=== PATIENT | female | born 1950 | race Caucasian/White ===

== ENCOUNTER 2016-08-02 16:04 | Outpatient (CLI) | payer MEDICARE, OTHER | END 2016-08-02 16:05 | disposition home or self-care (01) | DX: E78.2 Mixed hyperlipidemia (principal); Z85.43 Personal history of malignant neoplasm of ovary; Z79.899 Other long term (current) drug therapy; I10 Essential (primary) hypertension; E55.9 Vitamin D deficiency, unspecified ==

== ENCOUNTER 2018-09-16 05:37 | Outpatient (CLI) | payer MEDICARE, OTHER | END 2018-09-16 05:38 | disposition short-term general hospital (02) | LOC: EMS 05:37 | PROVIDERS: ATTEND Surgery | DX: R00.2 Palpitations (principal) | CPT/HCPCS: A0425; A0427 ==

== ENCOUNTER 2018-10-24 08:00 | Outpatient (CLI) | payer MEDICARE, OTHER ==
[2018-10-24 12:49] LABS: BASOPHILS % (AUTO) 0.6 %; EOSINOPHILS # (AUTO) 0.1 10^3/uL (0.0-0.7); EOSINOPHILS % (AUTO) 2.3 %; HGB - HEMOGLOBIN 13.7 g/dL (12.0-16.0); LYMPHOCYTES # (AUTO) 1.3 10^3/uL (1.5-3.5); LYMPHOCYTES % (AUTO) 25.3 %; MEAN CORPUSCULAR HEMOGLOBIN 27.8 pg (27.0-31.0); MEAN CORPUSCULAR HGB CONC 30.9 g/dL (32.0-36.0); MEAN CORPUSCULAR VOLUME 90.2 fL (81.0-99.0); MEAN PLATELET VOLUME 11.8 fL (7.9-10.8); MONOCYTES # (AUTO) 0.4 10^3/uL (0.0-1.0); MONOCYTES % (AUTO) 7.4 %; NEUTROPHILS # (AUTO) 3.4 10^3/uL (1.5-6.6); PLT - PLATELET COUNT 236 10^3/uL (130-450); RED BLOOD COUNT 4.92 10^6/uL (4.20-5.40); WHITE BLOOD COUNT 5.3 x10^3/uL (4.8-10.8)
[2018-10-24 14:23] LABS: ALBUMIN 4.4 g/dL (3.2-5.5); ALBUMIN/GLOBULIN RATIO 1.4 (1.0-2.2); ALKALINE PHOSPHATASE 57 IU/L (42-121); ALT ALANINE AMINOTRANSFERASE 22 IU/L (10-60); AST ASPARTATE AMINOTRANSFERASE 23 IU/L (10-42); BILIRUBIN,TOTAL 0.7 mg/dL (0.2-1.0); BUN - BLOOD UREA NITROGEN 19 mg/dL (6-20); CALCIUM 9.2 mg/dL (8.5-10.3); CARBON DIOXIDE - CO2 23 mmol/L (21-32); CHLORIDE 107 mmol/L (101-111); CHOL/HDL RATIO 4.7 (<4.4); CHOLESTEROL 210 mg/dL; CREATININE 0.7 mg/dL (0.4-1.0); GFR - MDRD 83 (>89); GLUCOSE 100 mg/dL (70-100); HDL CHOLESTEROL 45 mg/dL; LDL CHOLESTEROL,CALCULATED 145 mg/dL; LDL/HDL RATIO 3.2 (<4.4); SODIUM 138 mmol/L (135-145); TOTAL PROTEIN 7.5 g/dL (6.7-8.2); VLDL CHOLESTEROL 20 mg/dL
== END 2018-10-24 23:59 | disposition home or self-care (01) ==
LOC: LAB.N 08:00
PROVIDERS: ATTEND Family Medicine
DX: Z79.899 Other long term (current) drug therapy (principal); C56.9 Malignant neoplasm of unspecified ovary; I10 Essential (primary) hypertension
CPT/HCPCS: 36415; 80053; 80061; 82378; 83721; 85025

== ENCOUNTER 2018-10-27 07:33 | Outpatient (CLI) | payer MEDICARE, OTHER | END 2018-10-27 07:34 | disposition home or self-care (01) | LOC: DI 07:33 | PROVIDERS: ATTEND Nurse Practitioner | DX: I48.0 Paroxysmal atrial fibrillation (principal); I10 Essential (primary) hypertension | CPT/HCPCS: 93306 ==

== ENCOUNTER 2020-12-15 08:36 | Outpatient (CLI) | payer MEDICARE, OTHER ==
[2020-12-15 09:15] LABS: ALBUMIN 4.1 g/dL (3.2-5.5); ALBUMIN/GLOBULIN RATIO 1.2 (1.0-2.2); BASOPHILS % (AUTO) 0.4 %; BILIRUBIN,TOTAL 0.5 mg/dL (0.2-1.0); CALCIUM 9.3 mg/dL (8.5-10.3); CREATININE 0.8 mg/dL (0.4-1.0); EOSINOPHILS # (AUTO) 0.1 10^3/uL (0.0-0.7); EOSINOPHILS % (AUTO) 2.1 %; HCT - HEMATOCRIT 41.8 % (37.0-47.0); HGB - HEMOGLOBIN 13.5 g/dL (12.0-16.0); LYMPHOCYTES # (AUTO) 1.3 10^3/uL (1.5-3.5); LYMPHOCYTES % (AUTO) 23.6 %; MEAN CORPUSCULAR HGB CONC 32.3 g/dL (32.0-36.0); MEAN CORPUSCULAR VOLUME 89.9 fL (81.0-99.0); MEAN PLATELET VOLUME 10.5 fL (7.9-10.8); MONOCYTES # (AUTO) 0.4 10^3/uL (0.0-1.0); NEUTROPHILS # (AUTO) 3.7 10^3/uL (1.5-6.6); NEUTROPHILS % (AUTO) 66.7 %; PLT - PLATELET COUNT 233 10^3/uL (130-450); POTASSIUM 4.5 mmol/L (3.5-5.0); RED BLOOD COUNT 4.65 10^6/uL (4.20-5.40); RED CELL DISTRIBUTION WIDTH 14.1 % (12.0-15.0); TOTAL PROTEIN 7.4 g/dL (6.7-8.2); WHITE BLOOD COUNT 5.6 x10^3/uL (4.8-10.8)
== END 2020-12-15 08:37 | disposition home or self-care (01) ==
LOC: LAB 08:36
PROVIDERS: ATTEND Internal Medicine
DX: I48.91 Unspecified atrial fibrillation (principal)
CPT/HCPCS: 36415; 80053; 85025

== ENCOUNTER 2021-06-27 13:28 | Outpatient (CLI) | payer MEDICARE, OTHER ==
[2021-06-27 18:54] LABS: CREATININE 0.7 mg/dL (0.4-1.0)
== END 2021-06-27 13:29 | disposition home or self-care (01) ==
LOC: LAB.N 13:28
DX: I48.91 Unspecified atrial fibrillation (principal)
CPT/HCPCS: 36415; 82565

== ENCOUNTER 2022-06-19 23:32 | Emergency (ER) | payer MEDICARE, OTHER ==
[2022-06-19] MEDS ORDERED: ONDANSETRON 4 MG/2 ML VIAL IVP STA (23:58)
[2022-06-19] MEDS ORDERED: SODIUM CHLORIDE 0.9% 1,000 ML IV STA (23:58)
[2022-06-20] MEDS: HYDROmorphone 1 MG/ML CARPUJECT IVP PRN ×2 (00:05→03:08)
[2022-06-20] MEDS ORDERED: iohexoL-300 100 ML VIAL ONE (00:11)
[2022-06-20 00:15] LABS: BASOPHILS % (AUTO) 0.3 %; EOSINOPHILS # (AUTO) 0.1 10^3/uL (0.0-0.7); EOSINOPHILS % (AUTO) 0.6 %; HCT - HEMATOCRIT 46.5 % (37.0-47.0); HGB - HEMOGLOBIN 15.5 g/dL (12.0-16.0); LYMPHOCYTES # (AUTO) 2.2 10^3/uL (1.5-3.5); LYMPHOCYTES % (AUTO) 17.9 %; MEAN CORPUSCULAR HEMOGLOBIN 28.7 pg (27.0-31.0); MEAN CORPUSCULAR HGB CONC 33.3 g/dL (32.0-36.0); MONOCYTES # (AUTO) 0.6 10^3/uL (0.0-1.0); MONOCYTES % (AUTO) 4.7 %; NEUTROPHILS # (AUTO) 9.2 10^3/uL (1.5-6.6); NEUTROPHILS % (AUTO) 76.2 %; PLT - PLATELET COUNT 225 10^3/uL (130-450); RED BLOOD COUNT 5.41 10^6/uL (4.20-5.40); RED CELL DISTRIBUTION WIDTH 13.4 % (12.0-15.0)
[2022-06-20 00:31] LABS: PT - PROTHROMBIN TIME 11.4 secs (9.9-12.6)
[2022-06-20 00:37] LABS: ALBUMIN 4.3 g/dL (3.2-5.5); ALBUMIN/GLOBULIN RATIO 1.2 (1.0-2.2); BILIRUBIN,TOTAL 0.8 mg/dL (0.2-1.0); POTASSIUM 3.4 mmol/L (3.5-5.0)
[2022-06-20] MEDS ORDERED: iohexoL-300 100 ML VIAL IVP ONE (02:27)
[2022-06-20 02:32] LABS: MUDS CUTOFF CONCENTRATIONS CUTOFF CONC BELOW:
[2022-06-20 02:34] LABS: BILIRUBIN,URINE NEGATIVE (NEGATIVE); CLARITY,URINE CLEAR (CLEAR); GLUCOSE, URINE (UA) NEGATIVE (NEGATIVE); KETONES,URINE (UA) 40 mg/dL (NEGATIVE); LEUKOCYTE ESTERASE, URINE NEGATIVE (NEGATIVE); NITRITE,URINE NEGATIVE (NEGATIVE); OCCULT BLOOD,URINE TRACE-INTA (NEGATIVE); PROTEIN,URINE NEGATIVE (NEGATIVE); UROBILINOGEN,URINE 0.2 (NORMAL) E.U./dL (NORMAL)
[2022-06-20 02:43] LABS: AMPHETAMINE SCREEN,URINE NEGATIVE (NEGATIVE); BARBITURATE SCREEN,UR NEGATIVE (NEGATIVE); BENZODIAZEPINES SCREEN, URINE NEGATIVE (NEGATIVE); COCAINE SCREEN URINE NEGATIVE (NEGATIVE); METHADONE SCREEN, URINE NEGATIVE (NEGATIVE); METHAMPHETAMINES SCREEN, URINE NEGATIVE (NEGATIVE); OPIATE SCREEN, URINE POSITIVE (NEGATIVE); OXYCODONE SCREEN, URINE NEGATIVE (NEGATIVE); PROPOXYPHENE SCREEN, URINE NEGATIVE (NEGATIVE); THC CANNABINOID SCREEN, URINE NEGATIVE (NEGATIVE); TRICYCLIC ANTIDEPRESSANT,URINE NEGATIVE (NEGATIVE)
[2022-06-20] MEDS ORDERED: ONDANSETRON ODT 4 MG TABLET TL PRN (04:40)
--- NOTE | 2022-06-20 04:53 | ED Physician Documentation ---
History of Present Illness - Stated complaint Stated Complaint: ABD PX - Chief complaint Chief Complaint: Abd Pain - Additonal information Additional information: Patient 72-year-old female presenting to the emergency department with chief co mplaint abdominal pain and nausea vomiting. Acute onset right-sided abdominal spasm with associated nausea vomiting began today. Accompanied by . Reports has had multiple episodes similar to this in the past. Reports that ordinarily they resolve after a few days but they have never been this intense. Has a past medical significant for ovarian carcinoma status post total hysterectomy as well as cholecystectomy.Takes Eliquis for paroxysmal atrial fibrillation. 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[employer]: Ovarian cancer - Past Surgical History Past Surgical History: Yes General: Cholecystectomy /MANAGER [employer]: Tubal ligation, Hysterectomy, Oophrectomy - Present Medications Home Medications: Ambulatory Orders Medication Instructions Recorded Confirmed Losartan [Cozaar] 50 mg PO DAILY 06/24/15 06/20/22 Apixaban [Eliquis] 5 mg ORAL BID 06/20/22 06/20/22 carvediloL [Coreg] 3.125 mg PO BID 06/20/22 06/20/22 - Allergies Allergies/Adverse Reactions: Allergies Allergy/AdvReac Type Severity Reaction Status Date / Time No Known Drug Allergies Allergy Verified 06/19/22 23:36 - Social History Does the pt smoke?: No Smoking Status: Never smoker Does the pt drink ETOH?: No Does the pt have substance abuse?: No - Immunizations Immunizations are current?: Yes - POLST Patient has POLST: No PD ED PE NORMAL - Vitals Vital signs reviewed: Yes - General General: Alert and oriented X 3, Well developed/nourished, Other (Patient actively vomiting on arrival to the emergency department.). No: No acute distress - HEENT HEENT: Atraumatic, PERRL, EOMI, Ears normal, Moist mucous membranes, Pharynx benign - Neck Neck: Supple, no meningeal sign, No bony TTP, No adenopathy, Thyroid normal, No JVD - Cardiac Cardiac: RRR, No murmur, No gallop, No rub, Strong equal pulses - Respiratory Respiratory: No respiratory distress, Clear bilaterally - Abdomen Abdomen: Normal bowel sounds, Other (Tenderness without guarding in the right upper quadrant) - Female Female : Deferred - Rectal Rectal: Deferred - Back Back: No CVA TTP - Derm Derm: Normal color - Extremities Extremities: No deformity Results - Vitals Vitals: Vital Signs - 24 hr 06/19/22 06/19/22 06/20/22 23:37 23:56 00:44 Temperature 36.5 C Heart Rate 75 89 72 Respiratory 20 20 20 Rate Blood Pressure 151/110 H 156/99 H 144/79 H O2 Saturation 97 100 95 If not protocol : Oxygen Flow, liters/minute 06/20/22 06/20/22 03:07 04:08 Temperature 36.7 C Heart Rate 72 63 Respiratory 16 16 Rate Blood Pressure 144/103 H 100/68 O2 Saturation 97 97 If not protocol 2 : Oxygen Flow, liters/minute Oxygen O2 Source Room air - EKG (time done) 0006 Rate: Rate (enter#) (79) Rhythm: NSR [place]: Normal Intervals: Normal [place] QRS: Normal Ischemia: Non specific changes Computer interpretation: Agree with computer - Labs Labs: Laboratory Tests 06/19/22 06/20/22 06/20/22 23:57 00:16 00:16 WBC 12.0 H RBC 5.41 H Hgb 15.5 Hct 46.5 MCV 86.0 MCH 28.7 MCHC 33.3 RDW 13.4 Plt Count 225 MPV 12.0 H Neut # (Auto) 9.2 H Lymph # (Auto) 2.2 [place] # (Auto) 0.6 Eos # (Auto) 0.1 Baso # (Auto) 0.0 Absolute Nucleated RBC 0.00 Nucleated RBC % 0.0 PT 11.4 INR 1.0 Sodium Potassium Chloride Carbon Dioxide Anion Gap BUN Creatinine Estimated GFR (MDRD) Glucose Lactic Acid 3.1 H* Calcium Total Bilirubin AST ALT Alkaline Phosphatase Total Protein Albumin Globulin Albumin/Globulin Ratio Lipase Urine Color Urine Clarity Urine pH Ur Specific [place] Urine Protein Urine Glucose (UA) Urine Ketones Urine Occult Blood Urine Nitrite Urine Bilirubin Urine Urobilinogen Ur Leukocyte Esterase Ur Microscopic Review Urine Culture Comments Urine Opiates Screen Ur Oxycodone Screen Urine Methadone Screen Ur Propoxyphene Screen Ur Barbiturates Screen Ur Tricyclics Screen Ur Phencyclidine Scrn Ur Amphetamine Screen U Methamphetamines Scrn U Benzodiazepines Scrn Urine Cocaine Screen U Cannabinoids Screen 06/20/22 06/20/22 06/20/22 00:16 02:21 02:58 WBC RBC Hgb Hct MCV MCH MCHC RDW Plt Count MPV Neut # (Auto) Lymph # (Auto) [place] # (Auto) Eos # (Auto) Baso # (Auto) Absolute Nucleated RBC Nucleated RBC % PT INR Sodium 135 Potassium 3.4 L Chloride 97 L Carbon Dioxide 20 L Anion Gap 18.0 H BUN 17 Creatinine 1.0 Estimated GFR (MDRD) 55 L Glucose 171 H Lactic Acid 2.1 Calcium 10.0 Total Bilirubin 0.8 AST 27 ALT 19 Alkaline Phosphatase 75 Total Protein 8.0 Albumin 4.3 Globulin 3.7 Albumin/Globulin Ratio 1.2 Lipase 44 Urine Color YELLOW Urine Clarity CLEAR Urine pH 7.0 Ur Specific [place] 1.010 Urine Protein NEGATIVE Urine Glucose (UA) NEGATIVE Urine Ketones 40 H Urine Occult Blood TRACE-INTA Urine Nitrite NEGATIVE Urine Bilirubin NEGATIVE Urine Urobilinogen 0.2 (NORMAL) Ur Leukocyte Esterase NEGATIVE Ur Microscopic Review NOT INDICATED Urine Culture Comments NOT INDICATED Urine Opiates Screen POSITIVE H Ur Oxycodone Screen NEGATIVE Urine Methadone Screen NEGATIVE Ur Propoxyphene Screen NEGATIVE Ur Barbiturates Screen NEGATIVE Ur Tricyclics Screen NEGATIVE Ur Phencyclidine Scrn NEGATIVE Ur Amphetamine Screen NEGATIVE U Methamphetamines Scrn NEGATIVE U Benzodiazepines Scrn NEGATIVE Urine Cocaine Screen NEGATIVE U Cannabinoids Screen NEGATIVE PD Medical Decision Making - ED course Complexity details: reviewed results, considered differential, d/w patient, d/w product development consultant Drug Therapy Requiring Monitoring for Toxicity: IV Dilaudid ED course: Patient 72-year-old female presenting to the emergency department with nausea vomiting and abdominal tenderness. Afebrile, hemodynamically stable on arrival to the emergency department. Initial differential diagnosis included but not limited to bowel obstruction, appendicitis, perforation, colitis. IV access was obtained and she was given dose ondansetron, hydromorphone and IV hydration. EKGs on above was negative indications of acute cardiac ischemia or dysrhythmia. Lab work demonstrated mild leukocytosis with white blood cell count 12.0 as well as a mild hypokalemia with potassium 3.4. The remainder the patient's labs are generally within normal limits or nonactionable. CT of the abdomen pelvis showed likely's partial small bowel obstruction with transition point in the right upper abdomen. This is consistent with area of tenderness appreciated on exam. On reevaluation approximately 2 and half hours during her stay in the emergency department patient was found to be resting comfortably with no persistent abdominal tenderness, nausea, vomiting. She reported feeling otherwise well. Given that she is well without nausea vomiting at this time I do not see indication for NG tube. Care was discussed with the general surgical service who recommend Gastrografin challenge study. Care subsequently discussed with fiber technologist and Gastrografin study ordered to initiated approximately 0600. At this time I will be signing the patient out to the oncoming physician, please see their documentation for further detail. - Consults Consults: Consulted (name) (Dr Allen) Departure - Departure Clinical Impression: Partial small bowel obstruction
[2022-06-20] MEDS ORDERED: DIATRIZOATE MEGLU/DIATRIZO SOD 30 ML BOTTLE PO ONE ×2 (05:46→06:45)
--- NOTE | 2022-06-20 08:05 | ED Physician Documentation ---
ED Addendum - Addendum Addendum: Patient received in signout from overnight physician. She is boarding in the emergency department with a partial small bowel obstruction. Surgery was consulted last night and the plan is for small bowel follow-through study.There are no available inpatient beds so patient is currently boarding in the emergency department.Patient currently reports feeling well with no nausea, vomiting or pain. Discussed the plan with her and that next x-ray is scheduled at 10:00. Her current abdominal exam is nontender with hypoactive bowel sounds. 06/20/22 11:31 Patient is doing better, She is passing gas, no longer having any nausea. Small bowel follow-through shows the passage of oral contrast. I have discussed the case with Dr. Mendoza With whom the case was discussed last night by Dr. Orozco. He states that the patient can go home As it seems that her partial SBO has resolved and that the patient does not require admission to the hospital. I have reviewed this with the patient and she feels comfortable with this plan. She is tolerating water here.She is advised on concerning symptoms to return for. Departure - Departure Disposition: 01 Home, Self Care Clinical Impression: Partial small bowel obstruction Condition: Stable Instructions: Ileus Comments: You were found to have a partial bowel blockage last night. Fortunately with the passage of time this morning it appears that the blockage has started to resolve. At this time you do not need admission to the hospital.You may resume your diet but you may want to consider Taking with more bland food today to make sure that your body is able to tolerate it. If you have any recurrence of your symptoms please consider return to the emergency department.
--- NOTE | 2022-06-20 08:23 | CT Report ---
PROCEDURE: ABDOMEN/PELVIS W INDICATIONS: Right flank pain CONTRAST: Omni 300 100ml TECHNIQUE: After the administration of IV contrast, 5 mm thick sections acquired from the diaphragms to the symp hysis. 5 mm thick coronal and sagittal reformats were acquired. For radiation dose reduction, the f ollowing was used: automated exposure control, adjustment of mA and/or kV according to patient size. COMPARISON: None. FINDINGS: Image quality: Excellent. ABDOMEN: Lung bases: Lung bases are clear. Heart size is normal. Mild thickening at the gastroesophageal ju nction. Solid organs: Liver and spleen are normal in size and enhancement. There are multiple hepatic hypode nsities, most likely hepatic cysts. Gallbladder is surgically absent. Biliary system is mildly dilat ed. Pancreas enhances normally. No adrenal nodules. Kidneys demonstrate normal size and enhancemen t, without hydronephrosis. Peritoneum and bowel: Stomach and proximal small bowel loops are mildly distended and shows fluid. Di stal ileum is normal in caliber is transitional zone in the right lower abdomen.. The CT findings are compatible with partial or early small bowel obstruction. Appendix is normal. Diverticulosis without diverticulitis. Normal appendix. No free fluid or air. There is a 0.9 cm peritoneal nodule in the right upper posterior to the right kidney (series 4 image 37). Nodes and vessels: No retroperitoneal or mesenteric adenopathy by size criteria. Aorta and inferior vena cava are normal in size. Miscellaneous: No ventral hernias. PELVIS: Genitourinary: Bladder wall thickness is normal. Miscellaneous: No inguinal hernias or adenopathy. Bones: No suspicious bony lesions. No vertebral body compression fractures. IMPRESSION: 1. The CT findings are consistent with partial or early small bowel obstruction. 2. Mild thickening at GE junction. If clinically indicated, esophagram or EGD can be obtained for fur ther evaluation. 3. Diverticulosis without diverticulitis. 4. A 0.9 cm peritoneal nodule, indeterminate in clinical significance. 5. There is intrahepatic and intrahepatic biliary dilation, likely related to cholecystectomy. No significant discrepancy with the preliminary interpretation. Reviewed by: Jeni Petty MD on 06/20/2022 8:22 AM PST Approved by: Jeni Petty MD on 06/20/2022 8:22 AM PST Station ID: [id number]
--- NOTE | 2022-06-20 10:20 | XRAY Report ---
PROCEDURE: SBFT Challenge Panel INDICATIONS: SBO COMPARISON: Same day abdominal CT. CONTRAST: Oral Gastrografin FLUOROSCOPY TIME: Not applicable FINDINGS: KUB: Intraluminal contrast is seen within the stomach medially after ingestion. Small bowel: Interval passage of oral contrast 4 hours following administration. No significant bowel distention. IMPRESSION: Interval passage of oral contrast 4 hours following administration. Given CT, the findings probably r epresent a resolving partial small bowel obstruction or very low-grade partial small bowel obstructio n. Reviewed by: Milan Ba on 06/20/2022 10:19 AM [facility] Approved by: Milan Ba on 06/20/2022 10:19 AM [facility] Station ID: [id number]
[2022-06-20 11:22] VITALS: BP 135/75
== END 2022-06-20 11:56 | disposition home or self-care (01) ==
LOC: ED 23:32
DX: K56.600 Partial intestinal obstruction, unspecified as to cause (principal); Z79.01 Long term (current) use of anticoagulants
CPT/HCPCS: 36415; 74177; 74250; 80053; 80306; 81003; 83605; 83690; 85025; 85610; 93005; 96374; 96375; 96376; 99283; 99285; J1170; Q0162; Q9963; Q9967; 81001; 87086

== ENCOUNTER 2022-07-17 08:17 | Outpatient (CLI) | payer MEDICARE, OTHER ==
[2022-07-17] MEDS ORDERED: DIATR MEGLU/DIATRIZOATE SODIUM 120 ML BOTTLE ONE (08:23)
[2022-07-17] MEDS ORDERED: iohexoL-300 100 ML VIAL ONE (08:23)
[2022-07-17] MEDS ORDERED: iohexoL-300 100 ML VIAL IVP ONE (14:10)
[2022-07-17] MEDS ORDERED: DIATRIZOATE MEGLU/DIATRIZO SOD 30 ML BOTTLE PO ONE (14:10)
--- NOTE | 2022-07-17 16:27 | CT Report ---
PROCEDURE: ABDOMEN/PELVIS W INDICATIONS: PERITONEAL LESION, HIST OF OVARIAN CA CONTRAST: 100ml Omnipaque 300 TECHNIQUE: After the administration of contrast, 5 mm thick sections acquired from the diaphragms to the symphys is. 5 mm thick coronal and sagittal reformats were acquired. For radiation dose reduction, the foll owing was used: automated exposure control, adjustment of mA and/or kV according to patient size. COMPARISON: None. FINDINGS: Image quality: Excellent. ABDOMEN: Lung bases: Subtle fluffy patchy posterior lateral left lower lobe pulmonary infiltrate. Heart size i s normal. Solid organs: Liver and spleen are normal in size and enhancement. Gallbladder is surgically absent Biliary system is non dilated. Pancreas enhances normally. No adrenal nodules. Kidneys demonstra te normal size and enhancement, without hydronephrosis. Peritoneum and bowel: Bowel loops demonstrate normal wall thickness and caliber. No free fluid or a ir. Nodes and vessels: No retroperitoneal or mesenteric adenopathy by size criteria. Aorta and inferior vena cava are normal in size. Miscellaneous: No ventral hernias. There is a soft tissue nodular density predominantly lateral to the upper pole of the right kidney, posterior to the liver on current image 25/3. It may have grown s lightly since the previous study. On the previous study it measured approximately 7 x 11 mm. Today it measures approximately 7 x 15 mm. Reference current image 25/3. PELVIS: Genitourinary: Bladder wall thickness is normal. Miscellaneous: No inguinal hernias or adenopathy. Uterus is surgically absent. Bones: No suspicious bony lesions. No vertebral body compression fractures. Lumbar degenerative ch shweta. There is severe bilateral foraminal narrowing at L4-L5 and L5-S1. IMPRESSION: 1. Question growing retroperitoneal nodular density predominantly lateral to the upper pole of the ri ght kidney, posterior to the liver. If it is growing, it would be highly suspicious for a metastatic lesion. 2. Subtle patchy left basilar pneumonia. 3. Remote hysterectomy and cholecystectomy. 4. No other finding suspicious for metastatic disease in the abdomen and pelvis. Comment: Please refer to the separate report for findings in the chest from the same date. Reviewed by: Erik Londono MD on 07/17/2022 4:25 PM PDT Approved by: Erik Londono MD on 07/17/2022 4:25 PM PDT Station ID: [id number]
--- NOTE | 2022-07-17 17:56 | CT Report ---
PROCEDURE: CHEST W INDICATIONS: PERITONEAL LESION, HIST OF OVARIAN CA CONTRAST:100ml Omnipaque 300 TECHNIQUE: After the administration of intravenous contrast, 1 mm axial images were acquired from the pulmonary apices through the posterior costophrenic angles. Axial 5 mm soft tissue kernel reconstructions were performed as well as 8 mm axial MIP and coronal and sagittal 5 mm reformations. For radiation dose reduction, the following was used: automated exposure control, adjustment of mA and/or kV according to patient size. COMPARISON: CT abdomen and pelvis from today. FINDINGS: Image quality: Excellent. Lungs and pleura: Patchy fluffy airspace consolidation, left lower lobe. No pleural effusions or pneu mothorax. Central and peripheral airways are patent and normal in caliber. Mediastinum: Heart size is normal. No pericardial effusion. There is borderline mediastinal and hil ar adenopathy. There is a right precarinal lymph node measuring 1.9 x 1.5 cm. There is a subcarinal l ymph node measuring 1.8 x 2.3 cm. There is a right hilar lymph node measuring 1.3 x 1.6 cm. Thoracic aorta and central pulmonary arteries are normal in size. Esophagus is normal in caliber. No hiatal hernia. Bones and chest wall: No suspicious bony lesions. No vertebral body compression fractures. No axil gamal or supraclavicular adenopathy by size criteria. The thyroid is normal in size and there are no incidental findings.. Abdomen: Visualized upper abdominal solid organs appear normal. Upper abdominal bowel loops are nor mal in caliber. IMPRESSION: 1. Borderline mediastinal adenopathy, potentially reactive, potentially representing benign disease s uch as sarcoidosis. Cannot exclude neoplastic etiology. 2. Focal pneumonia, left lower lobe. Comments: PET/CT medial to evaluate the adenopathy and also a nodular density near the right kidney. Also recommend follow up imaging to demonstrate resolution of left basilar pneumonia. CLINICAL RECOMMENDATION STATEMENTS: In patients <35 years with an ITN detected on CT, MRI, or extrathyroidal ultrasound, the Committee re commends further evaluation with dedicated thyroid ultrasound if the nodule is "e1 cm and has no susp icious imaging features, and if the patient has normal life expectancy. In patients "e35 years with an ITN detected on CT, MRI, or extrathyroidal ultrasound, the Committee r ecommends further evaluation with dedicated thyroid ultrasound if the nodule is "e1.5 cm and has no s uspicious imaging features, and if the patient has normal life expectancy. (ACR, 2014) Reviewed by: Erik Londono MD on 07/17/2022 5:54 PM PDT Approved by: Erik Londono MD on 07/17/2022 5:54 PM PDT Station ID: [id number]
== END 2022-07-17 08:18 | disposition home or self-care (01) ==
LOC: DI 08:17
PROVIDERS: ATTEND Physician Assistant
DX: R19.09 Other intra-abdominal and pelvic swelling, mass and lump (principal); J18.9 Pneumonia, unspecified organism; Z90.49 Acquired absence of other specified parts of digestive tract; Z90.710 Acquired absence of both cervix and uterus; R59.0 Localized enlarged lymph nodes
CPT/HCPCS: 71260; 74177; Q9963; Q9967